=== PATIENT | female | born 1955 | race Two or more races ===

== ENCOUNTER 2025-05-22 15:15 | Emergency (ER) | payer OTHER ==
[~2025-05-22] VITALS: Ht 167.6 cm; Wt 71.5 kg
[2025-05-22 15:25] VITALS: BP 114/71; PULSE 90; RESP 17; TEMP 97.7; O2SAT 95
--- NOTE | 2025-05-22 15:28 | ED.PDOC ---
Musculoskeletal HPI Comments A 70 YEAR OLD FEMALE PRESENTS TO THE ED WITH COMPLAINT OF LEFT WRIST PAIN. PATIENT STATES SHE HAS BEEN EXPERIENCING LEFT WRIST PAIN THAT IS WORSE WITH MOVEMENT FOR THE PAST 2 DAYS. PATIENT NOTES SHE FELL AND INJURED HER LEFT WRIST ABOUT 1.5 YEARS AGO, BUT IS NOT SURE IF THIS INJURY IS RELATED TO HER CURRENT PAIN. PATIENT DENIES FEVER, CHILLS, SHORTNESS OF BREATH, CHEST PAIN, ABDOMINAL PAIN, NAUSEA, VOMITING, HEADACHE, OR OTHER COMPLAINTS. NO OTHER SYMPTOMS OR MODIFYING FACTORS AT THIS TIME. PATIENT IS ALERT, ORIENTED X 4, AND HAS STEADY GAIT. Chief Complaint: Upper Extremity Time Seen by MD: 15:18 Reviewed Notes: Nurses Notes, Medications, Allergies Allergies: Coded Allergies: NO KNOWN ALLERGIES (Unverified , 05/22/25) Home Meds Active Scripts Meloxicam (Meloxicam) 7.5 Mg Tab, 1 TAB PO BID, #30 TAB Prov:BRIAN MONTGOMERY 05/22/25 Information Source: Patient Mode of Arrival: Ambulatory Location: Left Extremity Location: Wrist Timing: Days Prehospital treatment: None Severity: Moderate Able to Move Extremity: Yes Bear Weight: Fully Pain: Moderate Mechanism: No Trauma, Spontaneous Circumstances: Spontaneous Onset of Symptoms: Spontaneous Symptoms: Pain DVT Risk Factors: NONE Last Tetanus: Unknown Associated signs and symptoms: Wrist pain Past Medical History PAST MEDICAL HISTORY: Denies Surgical History: Denies all surgeries PELT GRADER History: No Pertinent PELT GRADER History Family History Family History: Reviewed,noncontributory to illness Social History Smoker: Non-Smoker Alcohol: Denies ETOH Use Drugs: Denies Drug Use Lives In: Home Constitutional: denies: chills, diaphoresis, fatigue, fever, malaise, sweats, weakness, others EENTM: denies: blurred vision, double vision, ear bleeding, ear discharge, ear drainage, ear pain, ear ringing, eye pain, eye redness, hearing loss, mouth pain, mouth swelling, nasal discharge, nose bleeding, nose congestion, nose pain, photophobia, tearing, throat pain, throat swelling, voice changes, others Respiratory: denies: cough, hemoptysis, orthopnea, SOB at rest, shortness of breath, SOB with excertion, stridor, wheezing, others Cardiovascular: denies: chest pain, dizzy spells, diaphoresis, Dyspnea on exertion, edema, irregular heart beat, left arm pain, lightheadedness, palpitations, PND, syncope, others Gastrointestinal: denies: abdomen distended, abdominal pain, blood streaked bowels, constipated, diarrhea, dysphagia, difficulty swallowing, hematemesis, melena, nausea, poor appetite, poor fluid intake, rectal bleeding, rectal pain, vomiting, others Genitourinary: denies: abnormal vagina bleeding, burning, dyspareunia, dysuria, flank pain, frequency, hematuria, incontinence, pain, , vagina discharge, urgency, others Neurological: denies: dizziness, fainting, headache, left sided numbness, left sided weakness, numbness, paresthesia, pre-existing deficit, right sided numbness, right sided weakness, seizure, speech problems, tingling, tremors, weakness, others Musculoskeletal: reports: joint pain, joint swelling, muscle pain, others (LEFT WRIST PAIN); denies: back pain, gout, muscle stiffness, neck pain Integumetry: denies: bruises, change in color, change in hair/nails, dryness, laceration, lesions, lumps, rash, wounds, others Allergic/Immunocompromised: denies: Difficulty Healing, Frequent Infections, Hives, Itching, others Hematologic/Lymphatic: denies: anemia, blood clots, easy bleeding, easy bruising, swollen glands, others Endocrine: denies: excessive hunger, excessive sweating, excessive thirst, excessive urination, flushing, intolerance to cold, intolerance to heat, unexplained weight gain, unexplained weight loss, others Psychiatric: denies: anxiety, bipolar disorder, depression, hopeless, panic disorder, schizophrenia, sleepless, suicidal, others Physical Exam General Appearance: No Apparent Distress, Normal HEENT: Normal ENT Inspection, PERRL/EOMI, Pharynx Normal, TMs Normal Neck: Full Range of Motion, Non-Tender, Normal, Normal Inspection Respiratory: Chest Non-Tender, Lungs Clear, No Accessory Muscle Use, No Respiratory Distress, Normal Breath Sounds Cardiovascular: No Edema, No JVD, No Murmur, No Gallop, Normal Peripheral Puls es, Regular Rate/Rhythm Breast Exam: Deferred Gastrointestinal: No Organomegaly, Non Tender, No Pulsatile Mass, Normal Bowel Sounds, Soft Genitalia: Deferred Pelvic: Deferred Rectal: Deferred Extremities: No calf tenderness, Normal capillary refill, Normal range of motion, No pedal edema, Swelling (TENDERNESS AND MILD SWELLING ON LEFT WRIST, NO BONY TENDERNESS AND DEFORMITY. ), Tender (AND MILD SWELLING ON LEFT WRIST, NO BONY TENDERNESS AND DEFORMITY. 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 Was a procedure done?: No Differential Diagnosis EXT Differential Diagnosis: Fracture, Sprain, DJD, Strain, Arthritis, Bursitis Other Differential Diagnosis TENDINITIS X-Ray, Labs, Meds, VS Vital Signs Date Time Temp Pulse Resp B/P (MAP) Pulse Ox O2 Delivery O2 Flow Rate FiO2 05/22/25 15:25 97.7 90 17 114/71 (85) 95 97.7 X-ray left wrist Technique: AP lateral and oblique views REASON FOR EXAM: PAIN, NO INJURY INDICATION: PAIN, NO INJURY FINDINGS: No fractures or dislocations. No erosions or periosteal reaction. Ar ticular surfaces are smooth. There is narrowing of the 1st carpometacarpal joint with osteophyte formation IMPRESSION: 1. No acute bony pathology. Degenerative changes of the 1st carpometacarpal joint ATED BY: JACEK PIÑA MD DICTATED DATE/TIME: 05/22/25 154 SIGNED BY: JACEK PIÑA MD SIGNED DATE/TIME: 05/22/25 154 CC: X-Ray, Labs, Meds, VS Comment EXTERNAL MEDICAL RECORDS REVIEWED: [NONE] INDEPENDENT HISTORIANS: [NONE] SOCIAL DETERMINANTS OF HEALTH: [NONE] LABS ORDERED: NONE REVIEWED AND INTERPRETED RESULTS: NONE IMAGING ORDERED: XR WRIST LT TREATMENTS ORDERED: BLACK BRACE APPLIED TO PATIENT'S LEFT WRIST., TYLENOL 1G PO PROCEDURES PERFORMED: NONE CRITICAL CARE TIME: NONE I HAVE DISCUSSED THE PATIENT WITH THE ATTENDING PHYSICIAN DR. HARRISON AND HE AGREES WITH THE PATIENT'S PLAN OF CARE AND DISPOSITION. BASED ON HISTORY OF PRESENT ILLNESS, AND PHYSICAL EXAM, PATIENT WILL BE DISCHARGED HOME. DISCUSSED PLAN FOR DISCHARGE HOME WITH RX [[facility]]. MEDICATION WARNINGS GIVEN. SHARED DECISION MAKING: DISCUSSED WITH PATIENT THAT THEIR WORKUP WAS NORMAL. PATIENT INSTRUCTED TO FOLLOW UP WITH PRIMARY CARE PROVIDER IN 1-2 DAYS FOR RE- EVALUATION OF SYMPTOMS. PATIENT VERBALIZES UNDERSTANDING TO RETURN TO ED FOR NEW OR WORSENING SYMPTOMS OR IF FOLLOW UP WITH PCP CANNOT BE OBTAINED. PATIENT FEELS COMFORTABLE GOING HOME AT THIS TIME. ALL QUESTIONS ADDRESSED AT TIME OF DISCHARGE. 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 TAKE MEDICATIONS PRESCRIBED. RETURN TO ED FOR ANY NEW OR WORSENING SYMPTOMS. e-Prescriptions Meloxicam (Meloxicam) 7.5 Mg Tab 1 TAB PO BID, #30 TAB Prov: BRIAN MONTGOMERY 05/22/25 Discharged With: Self Critical Care Note Critical Care Time?: No Stability Stability form required: No I personally scribed for BRIAN MONTGOMERY ([email or web address]) on 05/22/25 at 15:28. Electronically submitted by Nacho Jones ([employer]). I personally scribed for BRIAN MONTGOMERY ([email or web address]) on 05/22/25 at 16:16. Electronically submitted by Nacho Jones ([employer]). I personally scribed for BRIAN MONTGOMERY ([email or web address]) on 05/22/25 at 16:25. Electronically submitted by Nacho Jones ([employer]). I personally scribed for BRIAN MONTGOMERY ([email or web address]) on 05/22/25 at 16:29. Electronically submitted by Nacho Jones ([employer]). I personally scribed for BRIAN MONTGOMERY ([email or web address]) on 05/22/25 at 16:32. Electronically submitted by Nacho Jones ([employer]). BRIAN MONTGOMERY May 22, 2025 15:28
--- NOTE | 2025-05-22 15:50 | DVH ---
X-ray left wrist Technique: AP lateral and oblique views REASON FOR EXAM: PAIN, NO INJURY INDICATION: PAIN, NO INJURY FINDINGS: No fractures or dislocations. No erosions or periosteal reaction. Articular surfaces are sm ooth. There is narrowing of the 1st carpometacarpal joint with osteophyte formation IMPRESSION: 1. No acute bony pathology. Degenerative changes of the 1st carpometacarpal joint
[2025-05-22] MEDS ORDERED: ACETAMINOPHEN 500 MG TAB or CAP PO ONE (16:30)
[2025-05-22] MEDS ORDERED: MELO7.5T7 PO (16:34)
[2025-05-22] MEDS: ACETAMINOPHEN 500 MG TAB or CAP PO ONE (16:52)
== END 2025-05-22 16:57 | disposition home or self-care (01) ==
LOC: ER 15:15
DX: M77.8 Other enthesopathies, not elsewhere classified (principal); M19.032 Primary osteoarthritis, left wrist
CPT/HCPCS: 73110